=== PATIENT | female | born 1980 | race Caucasian/White ===

== ENCOUNTER 2023-06-26 06:40 | Day surgery (SDC) | payer OTHER, SELFPAY ==
[2023-06-26] VITALS (9 sets, daily range): BP systolic 126–140; BP diastolic 65–83; BMI 31.5
[2023-06-26] MEDS: NORMOSOL-R 1000 IV (13:19)
[2023-06-26] MEDS: TYLENOL 1000 MG PO (13:19)
[2023-06-26] MEDS: DILAUDID 0.25 MG IV ×2 (15:18→15:38)
[2023-06-26] MEDS: MOTRIN 600 MG PO (16:21)
--- NOTE | 2023-06-28 07:19 | W.IMMPOSTOP ---
Surgical Immed Post Op Note
-
Primary Surgeon: Raymond Calle MD
Assisting Surgeon: None
Pre-op Diagnosis: Biliary colic
Post-op Diagnosis: Same
Procedure Performed: Laparoscopic cholecystectomy with cholangiogram
Anesthesia Type: General
Specimen / Cultures: Gallbladder and contents
Estimated Blood Loss: 3 cc
Complications: [None]
Operative Findings: Fairly normal-appearing gallbladder. Critical view of safety obtained prior to cholangiogram which demonstrated no distal filling defects. Duct ligated with 5 mm titanium clips.
--- NOTE | 2023-06-28 07:21 | W.SUR.PREOP ---
Pre-Operative Surgical Note
-
I have examined this patient prior to the performance of the scheduled procedure.
The patient's condition is unchanged from the time of the current History and
Physical and the patient is able to undergo the scheduled procedure.
--- NOTE | 2023-06-28 07:21 | OR.RPT ---
Operative Report
Operative Report
Patient Name: Cinda Silvestre
: 1980
Date of Operation: 06/26/2023
Preoperative Diagnosis: Symptomatic Cholelithiasis
Postoperative Diagnosis: Same
Procedure(s):
Laparoscopic Cholecystectomy with Cholangiogram
Surgeon(s):
Dr. Calle
Log Brander(s):
None
Anesthesia: General
Estimated Blood Loss: 3 cc
Urine Output: None
Drains/Lines/Implants: None
Specimens:
1. Gallbladder and contents
HPI/Surgical Indications:
This is a 43 year old female who presents with abdominal pain. Exam, labs and imaging are consistent with symptomatic cholelithiasis. Risks/Benefits/Alternatives were discussed at length, and the patient agreed to proceed with surgery.
Findings:
The patient was noted to have some evidence of chronic gallbladder inflammation noted by edema in the cystic triangle. A Critical View of Safety was obtained. Cholangiogram showed no filling defects in the biliary system with the Left, Right
Anterior, Right posterior hepatic ducts, CHD, cystic duct and CBD all identified. There was brisk flow of dye into the duodenum.
Procedure Description:
The patient was brought to the Operating Room and placed in the supine position. IV antibiotics were infused and sequential compression devices were confirmed to be on. Following uneventful induction of general endotracheal anesthesia, an
orogastric tube was placed. The abdomen was prepped and draped in the usual sterile fashion. The abdomen was entered using a left subcostal Veress technique followed by a right upper quadrant 5 mm Optiview trocar. Pneumoperitoneum to 15 mmHg
pressure was obtained without difficulty and we confirmed that no injury had occurred during our entry. The patient was positioned in reverse trendelenberg and rotated with the right side up slightly. Two 5mm trocars were then placed along the right
subcostal margin, and a 12 mm trocar in the epigastrium. A locking grasping forceps was placed on the fundus of the gallbladder where it was then retracted cephalad and to the right. Using appropriate grasping instruments, the peritoneum overlying
the triangle of Calot was incised. The cystic duct/gallbladder junction was identified, dissected circumferentially. The cystic artery was identified medially and was dissected circumferentially. A critical view was obtained. A clip was then
placed on the cystic duct/gallbladder junction and an intraoperative cholangiogram performed using fluoroscopy, which showed good flow of dye into the duodenum. There were no intra- or extrahepatic bile duct filling defects. The biliary anatomy
appeared normal. Following completion of the cholangiogram, the catheter was removed. Two clips were then placed proximally on the cystic duct and the duct divided. Two clips were placed proximally and one distally on the cystic artery, and the
artery was divided. Remaining soft tissue attachments of the gallbladder to the liver bed were then divided using electrocautery. There was no spillage of bile or stones. The gallbladder bed was inspected and excellent hemostasis was obtained.
The gallbladder was extracted through the 12 mm trocar site using an endocatch bag. The site had to be slightly enlarged to remove the gallbladder. The abdomen was again irrigated and excellent hemostasis was assured. All remaining trocars were
then removed and the pneumoperitoneum was evacuated. The 12 mm trocar site was closed using a figure of 8 of 0 PDS. All trocar sites were closed at the skin level using 4-0 Monocryl followed by Dermabond. Overall, the patient tolerated the
procedure well and was taken to the Recovery Room postoperatively in stable condition.
I was the attending physician and performed the procedure with no assistance. I was present for all portions of the case
Raymond Calle MD
== END 2023-06-26 17:10 | disposition home or self-care (01) ==
LOC: SDS 06:40
PROVIDERS: ATTENDING PHYSICIAN Surgery
DX: K80.10 Calculus of gallbladder with chronic cholecystitis without obstruction (principal); K80.70 Calculus of gallbladder and bile duct without cholecystitis without obstruction
CPT/HCPCS: 47563; 88304; 74300; 76000; A4300; J1335

== ENCOUNTER 2023-10-28 14:48 | Emergency (ER) | payer OTHER, SELFPAY ==
[2023-10-28 14:50] VITALS: BP 148/93
[2023-10-28 15:08] LABS: % Basophils 0.5 % (0-2); % Eosinophils 1.7 % (0-6); % Immature Granulocytes 0.2 % (0-0.5); % Lymphocytes 23.8 % (20.5-51.1); % Monocytes 6.3 % (1.7-9.3); % Neutrophils 67.5 % (42.2-75.2); Absolute Basophils 0.1 10^3/uL (0-0.2); Absolute Eosinophils 0.2 10^3/uL (0-0.7); Absolute Lymphocytes 2.4 10^3/uL (1.2-3.4); Absolute Monocytes 0.6 10^3/uL (0.1-0.6); Absolute Neutrophils 6.8 10^3/uL (1.4-6.5); Hematocrit 35.4 % (37.0-47.0); Hemoglobin 12.3 g/dL (12.0-16.0); Mean Corp Hgb Conc. 34.7 g/dL (33.0-37.0); Mean Corpuscular Volume 80.5 fL (81.0-99.0); Mean Platelet Volume 11.7 fL (7.4-10.4); Nucleated Red Blood Cells % 0 %; Platelet Count 194 10^3/uL (130-400); Red Cell Dist. Width 11.7 % (11.5-14.5); White Blood Cell Count 10.1 10^3/uL (4.8-10.8)
[2023-10-28 15:19] LABS: INR 1.09; PT 13.9 Sec (11.4-14.6)
[2023-10-28 15:20] LABS: APTT 28.9 Sec (23.4-35.0)
[2023-10-28 15:24] LABS: HCG, Serum Qualitative Screen Negative
[2023-10-28 15:25] LABS: ALT (SGPT) 13 U/L (0-35); AST (SGOT) 27 U/L (14-36); Albumin 4.6 g/dl (3.5-5.0); Alkaline Phosphatase 78 U/L (38-126); Blood Urea Nitrogen 14 mg/dl (7-17); Calcium 9.5 mg/dl (8.4-10.2); Carbon Dioxide 26 mmol/L (22-30); Chloride 102 mmol/L (98-107); Glucose 98 mg/dl (70-99); Potassium 4.1 mmol/L (3.5-5.1); Sodium 139 mmol/L (135-145); Total Bilirubin 0.4 mg/dl (0.2-1.3); Total Protein 7.4 g/dl (6.3-8.2); eGFR > 60.00
--- NOTE | 2023-10-28 17:26 | ED.GENMED ---
History of Present Illness
General
Chief Complaint: Rectal Bleeding
Time Seen by Provider: 10/28/23 16:57
History of Present Illness
History of Present Illness:
HPI: 1M of painless intermittent rectal bleeding - dx'd as internal hemorrhoids by PMD. Past few days w/ watery bloody stool w/ each BM. No N/V. No blood thinners. No constipation recently.
EXAM:
GENERAL: Well appearing in no distress
HEENT: Moist oral mucosa
ABDOMEN: Soft with no peritoneal signs, no tenderness, no external hemorrhoids, small redundant skin tissue, no external blood, small amount of gross blood noted on digital rectal examination without stool
NEUROLOGIC: Excellent strength all extremities, no coordination deficits
PSYCHIATRIC: Appropriate mental status, normal insight and judgement
EXTREMITIES: Nontender, no edema, moves all extremities equally
SKIN: No rash, no lesions
TIME OF INITIAL ENCOUNTER: 5:20 PM
NUMBER AND COMPLEXITY OF PROBLEMS ADDRESSED AT THE ENCOUNTER
� Chronic conditions affecting care: IBS, endometriosis, anxiety, h/o ana maría/appy/ovarian cystectomy
� Acute Exacerbation and/or Progression of Chronic Illness: This is an acute problem
� Differential Diagnosis includes: Internal hemorrhoidal bleed, external hemorrhoidal bleeding unlikely based on examination, diverticular bleeding, bleeding polyp,
AMOUNT AND/OR COMPLEXITY OF DATA TO BE REVIEWED AND ANALYZED
� I performed an independent evaluation of and my interpretation is:
EKG:
CT:
X-rays:
Laboratory Studies: WBC 10.1, Hgb 12.3, hCG neg, chemistries normal
Other:
� Review of other/old records: I reviewed old records, there is no old hemoglobin to compare in [facility]
� Clinical information was obtained by an independent historian: None needed
� Prescriptions/Medications Considered but not given:
� Further testing considered but not performed:
RISK OF COMPLICATIONS AND/OR MORBIDITY OR MORTALITY OF PATIENT MANAGEMENT
� Social determinants of health affecting care: Lives at home, states she had a colonoscopy and she think she had a polypectomy in [place]
� Discussion with other providers:
� Escalation of care including admission/observation vs risk of discharge considered: The patient is hemodynamically stable with normal hemoglobin and not on any anticoagulation or antiplatelets. More strongly favor internal
hemorrhoidal type of bleeding. She is to follow-up with GI. She states she is currently on to list to be seen in the future as an outpatient.
Phy Exam
Physical Exam
Physical Exam:
See HPI
Course
Orders/Labs/Results
Orders:
Orders
10/28/23 14:54
Test Result ONCE
10/28/23 14:59
Type+Screen Urgent
Complete Blood Count/With Diff Urgent
Comprehensive Metabolic Panel Urgent
HCG, Serum Qualitative Screen Urgent
Comment: Notify provider if positive test present
PTT Urgent
Prothrombin Time Urgent
10/28/23 15:08
ABO2 Routine
BBK Wristband Number:
Associate notified that ABO2 has been ordered: [id number]
Date: 10/28/23
Time: 15:08
Power Shear Operator ID: [id number]
Abnormal Lab Results
10/28/23
14:59
Hct 35.4 L %
(37.0-47.0)
MCV 80.5 L fL
(81.0-99.0)
MPV 11.7 H fL
(7.4-10.4)
Absolute Neuts (auto) 6.8 H 10^3/uL
(1.4-6.5)
10/28/23 14:59
10/28/23 14:59
Vital Signs
Initial and Last Documented VS:
Initial Vital Signs
Temp Pulse Resp BP Pulse Ox
98.2 F 85 16 148/93 100
10/28/23 14:50 10/28/23 14:50 10/28/23 14:50 10/28/23 14:50 10/28/23 14:50
Last Documented Vital Signs
Temp Pulse Resp BP Pulse Ox
98.2 F 85 16 148/93 100
10/28/23 14:50 10/28/23 14:50 10/28/23 14:50 10/28/23 14:50 10/28/23 14:50
*Critical Care Note
Total Time (30-74mins, 75-104mins- exclusive of procedures): Not Applicable
ED Attending Note
-
Portions of this chart may have been created with voice recognition software.� Occasional wrong word or��sound alike� substitutions may have occurred due to the inherent limitations of voice recognition software.
Discharge Plan
Departure
Patient Disposition: Home (Routine Discharge)
Date of Disposition: 10/28/23
Time of Disposition: 17:37
Patient with high blood pressure during this ER visit?: Yes
Discharge Problem:
Rectal bleeding
Instructions: Bloody Stools, Adult (DC), BLOOD PRESSURE
Prescriptions:
No Action
acetaminophen 500 mg Tablet
1,000 mg PO Q6HPRN PRN (Reason: mild pain)
escitalopram oxalate [Lexapro] 5 mg Tablet
5 mg PO DAILY
rosuvastatin [Crestor] 5 mg Tablet
5 mg PO QPM
Referrals:
Kate Valdez CRNP [Family Provider] -
Chanel Caraballo DO [Active] - Follow up in 2-3 days
Activity Restrictions/Additional Instructions:
Your hemoglobin today is normal at 12.3. Your platelet count is normal. Your white blood cell count is normal. Other basic labs are normal. testing negative. Follow-up with GI such as Dr. Caraballo.
Discharge Date and Time
Print Language: SLOVENIAN
== END 2023-10-28 18:05 | disposition home or self-care (01) ==
LOC: EMR 14:48
PROVIDERS: EMERGENCY PHYSICIAN Emergency Medicine; FAMILY PHYSICIAN Nurse Practitioner Family
DX: K62.5 Hemorrhage of anus and rectum (principal)
CPT/HCPCS: 99283; 80053; 84703; 85025; 85610; 85730; 86850; 86900; 86901

== ENCOUNTER → 2025-01-29 12:47 | Outpatient (REF) | payer OTHER, SELFPAY | LOC: RAD 12:47 | DX: R10.11 Right upper quadrant pain (principal); R10.31 Right lower quadrant pain; Z90.49 Acquired absence of other specified parts of digestive tract | CPT/HCPCS: 74177; Q9967 ==